=== PATIENT | female | born 1985 | race Caucasian/White ===

== ENCOUNTER 2024-03-17 10:06 | Day surgery (SDC) | payer SELFPAY ==
[2024-03-15 15:58] VITALS: BMI 24.1
[~2024-03-17 10:06] MED LIST: BACITRACIN ZINC 15 GM TUBE TOPICAL OINTMENT ONE; BUPIVACAINE HCL/PF 0.25% (2.5MG/ML) 10 ML VIAL ONE; BUPIVACAINE HCL/PF 2.5 MG/ML - 30 ML VIAL IJ ONE; EPINEPHrine/PF 1 MG/1 ML (1:1,000) AMPULE ONE; GUM MASTIC/STORAX/MSAL/ALCOHOL 1 DRP DROPSBTL MC ONE; LIDOCAINE HCL 1%, 10 MG/ML (20ML VIAL) ONE; PROPOFOL 20 ML ONE
[2024-03-17] MEDS ORDERED: oxyCODONE HCL 5 MG TABLET PO PRN ×2 (13:12→20:50)
[2024-03-17] MEDS ORDERED: FENTANYL CITRATE/PF 50 MCG/ML VIAL ONE ×2 (13:16→13:44)
[2024-03-17] MEDS ORDERED: MIDAZOLAM HCL 2 MG/2 ML SINGLE DOSE VIAL ONE ×2 (13:26→13:51)
[2024-03-17] MEDS ORDERED: SCOPOLAMINE HYDROBROMIDE 1 PATCH PATCH.TD72 ONE (13:36)
[2024-03-17] MEDS ORDERED: BUPIVACAINE HCL/PF 0.5% (5 MG/ML) 30 ML VIAL IJ ONE (13:39)
[2024-03-17] MEDS ORDERED: LIDOCAINE HCL/PF 2% SDV 5ML VIAL ONE (13:57)
[2024-03-17] MEDS ORDERED: ROCURONIUM BROMIDE 50 MG/5 ML SYRINGE ONE (13:57)
[2024-03-17] MEDS ORDERED: SUCCINYLCHOLINE CHLORIDE 200 MG/10 ML SYRINGE ONE (13:57)
[2024-03-17] MEDS ORDERED: PROPOFOL 20 ML ONE ×3 (13:57→17:03)
[2024-03-17] MEDS ORDERED: PROPOFOL 80 ML ONE (14:04)
[2024-03-17] MEDS ORDERED: DEXAMETHASONE SOD PHOSPHATE 4 MG/1 ML VIAL ONE (14:19)
[2024-03-17] MEDS ORDERED: ceFAZolin SODIUM 1 GM VIAL ONE ×2 (14:59→17:35)
[2024-03-17] MEDS ORDERED: ACETAMINOPHEN INJECTION 100 ML ONE (15:33)
[2024-03-17] MEDS ORDERED: PROPOFOL 60 ML ONE (15:33)
[2024-03-17] MEDS: BUPIVACAINE HCL/PF 0.25% (2.5MG/ML) 10 ML VIAL IJ ONE ×2 (16:10→19:00)
[2024-03-17] MEDS ORDERED: HYDROmorphone HCL/PF 1 MG/ML VIAL ONE (17:15)
[2024-03-17] MEDS ORDERED: PROPOFOL 40 ML ONE (18:04)
[2024-03-17] MEDS ORDERED: PROMETHAZINE HCL 25 MG/1 ML VIAL IVPB PRN (20:43)
[2024-03-17] MEDS ORDERED: ONDANSETRON 4 MG/2 ML VIAL IVPUSH PRN ×2 (20:43→20:45)
[2024-03-17] MEDS ORDERED: LACTATED RINGERS SOLUTION 1,000 ML IV SCH (20:45)
[2024-03-17] MEDS ORDERED: DOCUSATE SODIUM 100 MG CAPSULE (FP) PO PRN (20:50)
[2024-03-17] MEDS: LACTATED RINGERS SOLUTION 1,000 ML IV SCH (21:00)
[2024-03-17] MEDS: HYDROmorphone HCl 2 MG/ML VIAL IVPB PRN (23:47)
[2024-03-17] MEDS: CEFAZOLIN 1 GM in DEXTROSE 5%-WATER - 50 ML IVPB SCH (23:48)
[2024-03-18] MEDS: ENOXAPARIN NA (PORCINE) 40 MG/0.4 ML DISP.SYRIN SQ ONE (05:59)
[2024-03-18] MEDS: oxyCODONE HCL 5 MG TABLET PO PRN (06:10)
[2024-03-18] MEDS: ACETAMINOPHEN 325 MG TABLET (FP) PO PRN (06:10)
[2024-03-18 09:44] VITALS: PULSE 81
[2024-03-18] MEDS: DOXYCYCLINE HYCLATE 100 MG CAPSULE PO SCH (09:45)
[2024-03-18 13:56] VITALS: BP 106/73; RESP 19; TEMP 97.5
[2024-03-18] MEDS: ACETAMINOPHEN 1000 MG/100 ML BAG IVPB PRN (14:02)
== END 2024-03-18 16:00 | disposition home or self-care (01) ==
LOC: FASU 10:06 → FASUSAT 10:06 → FM/S 21:29 → FASUSAT 03-18 16:00
PROVIDERS: ATTEND Surgery
PROC: 0W0F0ZZ Alteration of Abdominal Wall, Open Approach (ICD-10-PCS; principal; 2024-03-17 15:01)
PROC: 0J083ZZ Alteration of Abdomen Subcutaneous Tissue and Fascia, Percutaneous Approach (ICD-10-PCS; 2024-03-17 15:01)
DX: Z41.1 Encounter for cosmetic surgery (principal); M62.08 Separation of muscle (nontraumatic), other site; E65 Localized adiposity
CPT/HCPCS: 81025; 94760; J0131